=== PATIENT | female | born 1985 ===

== ENCOUNTER 2024-09-11 18:52 | Inpatient (IN) | payer MEDICAID, SELFPAY ==
[2024-09-11 19:19] VITALS: BP 134/86; PULSE 99; RESP 16; TEMP 36.6; O2SAT 95
--- NOTE | 2024-09-11 19:26 | PC.NURSE ---
Pt was brought on to the unit at 1915 via stretcher from [facility]. VSS, skin check completed , skin intact. Pt oriented to the unit.
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
[2024-09-12 07:25] VITALS: BP 130/84; PULSE 74; RESP 14; TEMP 36.8; O2SAT 98
[2024-09-12] MEDS: QUEtiapine Fumarate 100 MG TABLET PO ×3 (08:32→16:37)
[2024-09-12 08:33] VITALS: BP 130/84
[2024-09-12] MEDS: amLODIPine Besylate 10 MG TABLET PO (08:33)
[2024-09-12] MEDS: Sertraline HCL 100 MG TABLET PO (08:33)
[2024-09-12 08:57] LABS: Estimated Average Glucose 94 mg/dL; Hemoglobin A1c % 4.9 % (<6.0)
[2024-09-12 09:03] LABS: Cholesterol 206 mg/dL (<200); HDL Cholesterol 54 mg/dL (>40); LDL Cholesterol Calculated 119 mg/dL (<100); Triglycerides 168 mg/dL (<150)
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
[2024-09-12 09:43] LABS: Free T4 (Free Thyroxine) 0.69 ng/dL (0.71-1.85); Thyroid Stimulating Hormone 1.74 uIU/mL (0.32-4.0)
--- NOTE | 2024-09-12 09:50 | HO.PM.IMCN ---
History of Present Illness Data of Consult Service Date: 09/12/24 Primary Care Provider: None Physician HPI Reason for consult: Medical H&P 39-year-old female with a past medical history of PTSD, MDD, hypertension, anxiety, and EtOH, presented to [facility] with suicidal ideation. Patient was recently discharged from [facility], plans to discharge to [facility] which did not occur, instead she went to her parent's house and subsequently had a relapse. She also demonstrated self-injurious behavior. Her CBC, CMP, and hCG were all negative, she was medically cleared for admission to the psychiatric unit. Om exam she has no medical concerns. She does report what she describes as an alcohol withdrawal seizure about three weeks ago. She reports she was not eating, or drinking water which led to a seizure she had at home. She reports a medical admission for 5 days as a result in [place]. No records available. Her exam she is awake and alert, anxious. She denies any shortness of breath, dizziness, lightheadedness, headaches or any other concerning symptoms. Review of Systems Review of Systems: Denies any shortness of breath, chest pain, dizziness, lightheadedness, abdominal pain or discomfort, nausea vomiting or diarrhea [facility] Medical History (Updated 09/12/24 @ 10:00 by Martha Carreno DNP) PTSD (post-traumatic stress disorder) MDD (major depressive disorder) Hypertensive disorder Hemorrhoid Anxiety disorder Alcohol dependence with intoxication Social History Household Members: Family Household Members Other:: parents Housing: House Do you presently have visiting nurse or other home services: No Patient Tobacco Use Status: Refuse Tobacco use screen Currently Displaying Signs/Symptoms of Drug Intoxication Withdrawal: No Spiritual Healthcare Practices: pt declined to participate in assessment at this time Sikhism Healthcare Practices: pt declined to participate in assessment at this time Cultural Healthcare Practices: pt declined to participate in assessment at this time Advance Directives: No Advance Directives Information Provided: No Do you have thoughts of harming others: None Do you have a plan to hurt others: No Plan Recently lost weight without trying: Unsure Patient : No : No Poor oral hygiene: No Meds Allergies Allergy/AdvReac Type Severity Reaction Status Date / Time buspirone [From BuSpar] Allergy Unknown Verified 09/11/24 23:29 Active Medications: Current Medications Acetaminophen (Acetaminophen 325 Mg Tablet) 650 mg PO Q6H PRN PRN Reason: Headache/Pain, Scale 1-10 Al Hydroxide/Mg Hydroxide (Magnesium Hydrox/Alum Hydrox 30 Ml Oral.Susp) 30 ml PO Q6H PRN PRN Reason: Heartburn/Nausea Amlodipine Besylate (Amlodipine Besylate 10 Mg Tablet) 10 mg PO DAILY [facility]; Protocol Last Admin: 09/12/24 08:33 Dose: 10 mg Hydroxyzine HCl (Hydroxyzine Hcl 25 Mg Tablet) 25 mg PO Q6H PRN PRN Reason: mild anxiety Lidocaine (Lidocaine 4 % Patch Adh..Patch) 1 patch TRANSDERMA Q12H PRN PRN Reason: Pain, Mild (Pain Scale 1-3) Lorazepam (Lorazepam 1 Mg Tablet) 1 mg PO BEDTIME PRN PRN Reason: Anxiety Magnesium Hydroxide (Milk Of Magnesia 30 Ml Oral.Susp) 30 ml PO DAILY PRN PRN Reason: Constipation Nicotine Polacrilex (Nicotine Polacrilex 2 Mg Gum) 4 mg BUCCAL Q2H PRN PRN Reason: Nicotine Cravings Non-Formulary Medication (Methylphenidate Hcl [Concerta]) 36 mg PO DAILY [facility] Quetiapine Fumarate (Quetiapine Fumarate 100 Mg Tablet) 100 mg PO TID PRN PRN Reason: Anxiety Last Admin: 09/12/24 08:32 Dose: 100 mg Quetiapine Fumarate (Quetiapine Fumarate 200 Mg Tablet) 200 mg PO BEDTIME [facility] Last Admin: 09/11/24 23:22 Dose: Not Given Sertraline HCl (Sertraline Hcl 100 Mg Tablet) 100 mg PO DAILY [facility] Last Admin: 09/12/24 08:33 Dose: 100 mg Trazodone HCl (Trazodone Hcl 50 Mg Tablet) 50 mg PO BEDTIME MRX1 PRN PRN Reason: Insomnia Home Medications ?Medication ?Instructions ?Recorded ?Confirmed ?Last Taken ?Type amlodipine 5 mg tablet 10 mg PO DAILY 09/11/24 09/11/24 09/11/24 10:23 History lidocaine 5 % topical patch 1 patch topical Q12H PRN Pain 09/11/24 09/11/24 Unknown History lorazepam 1 mg tablet 1 mg PO BEDTIME PRN Anxiety 09/11/24 09/11/24 09/10/24 21:41 History methylphenidate HCl 36 mg 36 mg PO DAILY 09/11/24 09/11/24 09/11/24 10:22 History tablet,extended release 24 hr (Concerta) quetiapine 100 mg tablet 100 mg PO TID PRN Anxiety 09/11/24 09/11/24 09/11/24 10:23 History quetiapine 200 mg tablet 200 mg PO BEDTIME 09/11/24 09/11/24 09/10/24 21:41 History sertraline 100 mg tablet 100 mg PO DAILY 09/11/24 09/11/24 09/11/24 10:23 History Physical Exam Vital Signs and Narrative: Vital Signs: Last Vital Signs Temp 98.2 F 09/12/24 07:25 Pulse 74 09/12/24 07:25 Resp 14 09/12/24 07:25 BP 130/84 09/12/24 08:33 Pulse Ox 98 09/12/24 07:25 O2 Del Method Room Air 09/12/24 07:25 Alert and oriented X3, able to give good history. Anxious Neuro: CN II-X11 intact, no deficits, visual acuity intact EYES: PERRLA, EOM intact ENT: Hearing intact, lips moist Cardiac: S1 S2 RRR, No ectopy Pulmonary: lungs clear to auscultation, No increased WOB. Abdominal: BS active in all 4 quadrants, no guarding or tenderness MSK: Strength 5/5 upper and lower extremities : Deferred Extremities: No edema in lower extremities Psych: mood stable, Quiet and cooperative. Skin: Warm and dry, Intact Results Labs Labs: Laboratory Results - last 24 hr 09/12/24 07:59 Estimat Average Glucose 94 Hemoglobin A1c % 4.9 Triglycerides 168 H Cholesterol 206 H LDL Cholesterol, Calc 119 H HDL Cholesterol 54 TSH 1.74 Free T4 0.69 L Assessment and Plan (1) Hypertensive disorder: Status: Acute Plan MDD/PTSD/anxiety/EtOH abuse/suicidal ideation/self-injurious behavior Plan per psychiatric team No evidence of withdrawal at this time Hypertension Continue amlodipine Continue to follow up blood pressures and notify medicine with any concerns Thank you for allowing me to participate in the care of this patient. Signing off at this time. Please reconsult of any acute concerns or issues arise
[2024-09-12 09:56] LABS: Folate 11.2 ng/mL (> or = 4.0); Vitamin B12 295 pg/mL (200-900)
[2024-09-12] MEDS: Dextroamphetamine/Amphetamine XR 5 MG CAP.ER.24H PO (12:34)
[2024-09-12 20:00] VITALS: BP 121/71; PULSE 90; RESP 16; TEMP 36.6; O2SAT 98
[2024-09-12] MEDS: traZODone HCL 50 MG TABLET PO (20:24)
[2024-09-12] MEDS: LORazepam 1 MG TABLET PO (20:24)
[2024-09-12] MEDS: QUEtiapine Fumarate 200 MG TABLET PO (20:24)
[2024-09-13 07:51] VITALS: BP 116/77; PULSE 77; RESP 16; TEMP 36.3; O2SAT 96
[2024-09-13] MEDS: amLODIPine Besylate 10 MG TABLET PO (08:39)
[2024-09-13] MEDS: QUEtiapine Fumarate 100 MG TABLET PO ×2 (08:41→17:19)
[2024-09-13] MEDS: Sertraline HCL 100 MG TABLET PO (08:42)
[2024-09-13] MEDS: Dextroamphetamine/Amphetamine XR 10 MG CAP.ER.24H PO (08:42)
[2024-09-13] MEDS: Naltrexone HCl 50 MG TABLET PO (11:30)
--- NOTE | 2024-09-13 15:32 | HO.PSYCHPN ---
Subjective Subjective Date of Service: 09/13/24 Reason For Visit: PTSD, alcohol use disorder severe Interim History: less voluble and more settled than yesterday. still has a bed at [facility] for 09/19. R/B of naltrexone and antabuse discussed with pt. pt opts for trial of naltrexone. per staff, taking meds. +anx/dep. slept 8 hours. Mental Status Exam Mental Status Exam Narrative: disheveled, mono. cooperative. restless. speech incr rate, amount. decr latency. nml loudness. thoughts more linear and topical. affect constricted, normo-intense, non-labile. mood not assessed. no SI/SIBI/HI/AVH expressed. Diagnostics Vital Signs (24Hr): Vital Signs - 24 hr 09/12/24 20:00 09/13/24 07:51 Temperature 97.8 F 97.3 F Pulse Rate 90 77 Respiratory Rate 16 16 Blood Pressure 121/71 116/77 Pulse Oximetry 98 96 Oxygen Delivery Method Room Air Room Air Labs Labs: Laboratory Results - last 48 hr 09/12/24 07:59 Estimat Average Glucose 94 Hemoglobin A1c % 4.9 Triglycerides 168 H Cholesterol 206 H LDL Cholesterol, Calc 119 H HDL Cholesterol 54 Vitamin B12 295 Folate 11.2 TSH 1.74 Free T4 0.69 L Medications Medications Current Medications Acetaminophen (Acetaminophen 325 Mg Tablet) 650 mg PO Q6H PRN PRN Reason: Headache/Pain, Scale 1-10 Al Hydroxide/Mg Hydroxide (Magnesium Hydrox/Alum Hydrox 30 Ml Oral.Susp) 30 ml PO Q6H PRN PRN Reason: Heartburn/Nausea Amlodipine Besylate (Amlodipine Besylate 10 Mg Tablet) 10 mg PO DAILY [facility]; Protocol Last Admin: 09/13/24 08:39 Dose: 10 mg Amphetamine/Dextroamphetamine (Dextroamphetamine/Amphetamine Xr 10 Mg Cap.Er.24h) 10 mg PO DAILY [facility] Last Admin: 09/13/24 08:42 Dose: 10 mg Hydroxyzine HCl (Hydroxyzine Hcl 25 Mg Tablet) 25 mg PO Q6H PRN PRN Reason: mild anxiety Lidocaine (Lidocaine 4 % Patch Adh..Patch) 1 patch TRANSDERMA Q12H PRN PRN Reason: Pain, Mild (Pain Scale 1-3) Lorazepam (Lorazepam 1 Mg Tablet) 1 mg PO BEDTIME PRN PRN Reason: Anxiety Last Admin: 09/12/24 20:24 Dose: 1 mg Magnesium Hydroxide (Milk Of Magnesia 30 Ml Oral.Susp) 30 ml PO DAILY PRN PRN Reason: Constipation Naltrexone HCl (Naltrexone Hcl 50 Mg Tablet) 50 mg PO DAILY [facility] Last Admin: 09/13/24 11:30 Dose: 50 mg Nicotine Polacrilex (Nicotine Polacrilex 2 Mg Gum) 4 mg BUCCAL Q2H PRN PRN Reason: Nicotine Cravings Quetiapine Fumarate (Quetiapine Fumarate 100 Mg Tablet) 100 mg PO TID PRN PRN Reason: Anxiety Last Admin: 09/13/24 08:41 Dose: 100 mg Quetiapine Fumarate (Quetiapine Fumarate 200 Mg Tablet) 200 mg PO BEDTIME [facility] Last Admin: 09/12/24 20:24 Dose: 200 mg Sertraline HCl (Sertraline Hcl 100 Mg Tablet) 100 mg PO DAILY [facility]CLUD[facility] Last Admin: 09/13/24 08:42 Dose: 100 mg Trazodone HCl (Trazodone Hcl 50 Mg Tablet) 50 mg PO BEDTIME MRX1 PRN PRN Reason: Insomnia Last Admin: 09/12/24 20:24 Dose: 50 mg Allergies Allergies Allergy/AdvReac Type Severity Reaction Status Date / Time buspirone (From BuSpar) Allergy Unknown Verified 09/11/24 23:29 Assessment & Plan Assessment & Plan (1) ADHD: Status: Acute Code(s): F90.9 - Attention-deficit hyperactivity disorder, unspecified type (2) Alcohol use disorder: Status: Acute Code(s): F10.90 - Alcohol use, unspecified, uncomplicated (3) PTSD (post-traumatic stress disorder): Status: Acute Code(s): F43.10 - Post-traumatic stress disorder, unspecified Plan 09/12: no need for CIWA/ativan protocol as pt was detoxed and only relapsed for several days after 3 weeks without alcohol. continue home medications. replace methylphenidate with adderall. stabilize inpatient, refer for residential Tx programming (pt may have a bed at [facility] as of 09/19). 09/13: [facility] has bed for her 09/19. will discharge to [facility] [place] 09/18 via lyft. start trial of naltrexone. Reason for continued inpatient stay Substantial Risk for: inability to function Time Spent With Patient Time: Total time managing care of this patient today __35__ minutes.
[2024-09-13 20:00] VITALS: BP 117/64; PULSE 71; RESP 16; TEMP 36.5; O2SAT 95
[2024-09-13] MEDS: LORazepam 1 MG TABLET PO (20:51)
[2024-09-13] MEDS: traZODone HCL 50 MG TABLET PO (20:51)
[2024-09-13] MEDS: QUEtiapine Fumarate 200 MG TABLET PO (20:52)
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
[2024-09-14 07:20] VITALS: BP 137/75; PULSE 74; RESP 16; TEMP 35.9; O2SAT 94
[2024-09-14 08:11] VITALS: BP 137/75
[2024-09-14] MEDS: Sertraline HCL 100 MG TABLET PO (08:11)
[2024-09-14] MEDS: amLODIPine Besylate 10 MG TABLET PO (08:11)
[2024-09-14] MEDS: Naltrexone HCl 50 MG TABLET PO (08:12)
[2024-09-14] MEDS: Dextroamphetamine/Amphetamine XR 10 MG CAP.ER.24H PO (08:12)
[2024-09-14] MEDS: QUEtiapine Fumarate 100 MG TABLET PO ×3 (08:18→17:28)
--- NOTE | 2024-09-14 09:56 | HO.PSYCHPN ---
Subjective Subjective Date of Service: 09/14/24 Reason For Visit: PTSD, alcohol use disorder severe Subjective Notes: Conditional Voluntary Interim History: Active on unit. attending groups. Pt reports feeling anxious and depressed; pt stated, I'm trying to push myself not to sleep all day and try to go to groups . denies SI/HI/VH/AH. medication compliant. continue current tx plan. Medication Compliance: Yes Side effects from medications: No Attending Groups: Yes Mental Status Exam Mental Status Exam Patient Appearance: Appropriate Patient Orientation: Person, Place, Time and Situation Level of Consciousness: Awake and Alert Patient Behavior: Appropriate, Guarded and Cooperative Mood Description: Depressed and Anxious Affect Description: Calm Ability to Follow Directions: Good Speech Pattern: Clear Memory Description: Intact Hallucinations: None Delusions: Not Present Thought Process: Intact Thought Content: positive for Intact Diagnostics Vital Signs (24Hr): Vital Signs - 24 hr 09/13/24 20:00 09/14/24 07:20 09/14/24 08:11 Temperature 97.7 F 96.7 F L Pulse Rate 71 74 Respiratory Rate 16 16 Blood Pressure 117/64 137/75 137/75 Pulse Oximetry 95 94 Oxygen Delivery Method Room Air Room Air Labs Labs: Laboratory Results - last 48 hr 09/12/24 07:59 Vitamin B12 295 Folate 11.2 Medications Medications Current Medications Acetaminophen (Acetaminophen 325 Mg Tablet) 650 mg PO Q6H PRN PRN Reason: Headache/Pain, Scale 1-10 Al Hydroxide/Mg Hydroxide (Magnesium Hydrox/Alum Hydrox 30 Ml Oral.Susp) 30 ml PO Q6H PRN PRN Reason: Heartburn/Nausea Amlodipine Besylate (Amlodipine Besylate 10 Mg Tablet) 10 mg PO DAILY [facility]; Protocol Last Admin: 09/14/24 08:11 Dose: 10 mg Amphetamine/Dextroamphetamine (Dextroamphetamine/Amphetamine Xr 10 Mg Cap.Er.24h) 10 mg PO DAILY [facility] Last Admin: 09/14/24 08:12 Dose: 10 mg Hydroxyzine HCl (Hydroxyzine Hcl 25 Mg Tablet) 25 mg PO Q6H PRN PRN Reason: mild anxiety Lidocaine (Lidocaine 4 % Patch Adh..Patch) 1 patch TRANSDERMA Q12H PRN PRN Reason: Pain, Mild (Pain Scale 1-3) Lorazepam (Lorazepam 1 Mg Tablet) 1 mg PO BEDTIME PRN PRN Reason: Anxiety Last Admin: 09/13/24 20:51 Dose: 1 mg Magnesium Hydroxide (Milk Of Magnesia 30 Ml Oral.Susp) 30 ml PO DAILY PRN PRN Reason: Constipation Naltrexone HCl (Naltrexone Hcl 50 Mg Tablet) 50 mg PO DAILY [facility] Last Admin: 09/14/24 08:12 Dose: 50 mg Nicotine Polacrilex (Nicotine Polacrilex 2 Mg Gum) 4 mg BUCCAL Q2H PRN PRN Reason: Nicotine Cravings Quetiapine Fumarate (Quetiapine Fumarate 100 Mg Tablet) 100 mg PO TID PRN PRN Reason: Anxiety Last Admin: 09/14/24 08:18 Dose: 100 mg Quetiapine Fumarate (Quetiapine Fumarate 200 Mg Tablet) 200 mg PO BEDTIME [facility] Last Admin: 09/13/24 20:52 Dose: 200 mg Sertraline HCl (Sertraline Hcl 100 Mg Tablet) 100 mg PO DAILY [facility] Last Admin: 09/14/24 08:11 Dose: 100 mg Trazodone HCl (Trazodone Hcl 50 Mg Tablet) 50 mg PO BEDTIME MRX1 PRN PRN Reason: Insomnia Last Admin: 09/13/24 20:51 Dose: 50 mg Allergies Allergies Allergy/AdvReac Type Severity Reaction Status Date / Time buspirone (From BuSpar) Allergy Unknown Verified 09/11/24 23:29 Assessment & Plan Assessment & Plan (1) ADHD: Status: Acute Code(s): F90.9 - Attention-deficit hyperactivity disorder, unspecified type (2) Alcohol use disorder: Status: Acute Code(s): F10.90 - Alcohol use, unspecified, uncomplicated (3) PTSD (post-traumatic stress disorder): Status: Acute Code(s): F43.10 - Post-traumatic stress disorder, unspecified Plan 09/12: no need for CIWA/ativan protocol as pt was detoxed and only relapsed for several days after 3 weeks without alcohol. continue home medications. replace methylphenidate with adderall. stabilize inpatient, refer for residential Tx programming (pt may have a bed at [facility] as of 09/19). 09/13: [facility] has bed for her 09/19. will discharge to [facility] in [place] 09/18 via lyft. start trial of naltrexone. 09/14: anxious and depressed. trying to attending groups. continue current tx plan. Patient educated on: diagnosis and medication risk/benefits Reason for continued inpatient stay Substantial Risk for: med/psych decompensation Time Spent With Patient Time: Total time managing care of this patient today _15___ minutes.
[2024-09-14] MEDS: Nicotine Polacrilex 2 MG GUM 4 MG BUCCAL ×3 (10:29→17:30)
[2024-09-14 21:57] VITALS: BP 112/81; PULSE 78; RESP 16; TEMP 36.4; O2SAT 100
[2024-09-14] MEDS: Lidocaine 4 % Patch ADH..PATCH 1 PATCH TRANSDERMA (22:20)
[2024-09-14] MEDS: Acetaminophen 325 MG TABLET 650 MG PO (22:20)
[2024-09-14] MEDS: QUEtiapine Fumarate 200 MG TABLET PO (22:21)
[2024-09-14] MEDS: traZODone HCL 50 MG TABLET PO (22:21)
[2024-09-14] MEDS: LORazepam 1 MG TABLET PO (22:21)
[2024-09-15 08:00] VITALS: BP 111/66; PULSE 68; RESP 14; TEMP 36.9; O2SAT 95
[2024-09-15] MEDS: Dextroamphetamine/Amphetamine XR 10 MG CAP.ER.24H PO (08:26)
[2024-09-15] MEDS: Sertraline HCL 100 MG TABLET PO (08:27)
[2024-09-15] MEDS: Naltrexone HCl 50 MG TABLET PO (08:27)
[2024-09-15 08:28] VITALS: BP 111/66
[2024-09-15] MEDS: amLODIPine Besylate 10 MG TABLET PO (08:28)
[2024-09-15] MEDS: QUEtiapine Fumarate 100 MG TABLET PO ×3 (08:29→18:46)
[2024-09-15] MEDS: Acetaminophen 325 MG TABLET 650 MG PO (08:30)
--- NOTE | 2024-09-15 10:11 | HO.PSYCHPN ---
Subjective Subjective Date of Service: 09/15/24 Reason For Visit: PTSD, alcohol use disorder severe Interim History: Laying in bed. Pt reports feeling okay but tired today; pt stated, I'm waiting to leave here on Wednesday and go to [facility] . denies SI/HI/VH/AH. continue current tx plan. Medication Compliance: Yes Side effects from medications: No Attending Groups: Intermittent Mental Status Exam Mental Status Exam Patient Appearance: Appropriate Patient Orientation: Person, Place, Time and Situation Level of Consciousness: Awake and Alert Patient Behavior: Appropriate, Guarded and Cooperative Mood Description: Depressed Affect Description: Calm Ability to Follow Directions: Good Speech Pattern: Clear Memory Description: Intact Hallucinations: None Delusions: Not Present Thought Process: Intact Thought Content: positive for Intact Diagnostics Vital Signs (24Hr): Vital Signs - 24 hr 09/14/24 21:57 09/15/24 08:00 09/15/24 08:28 Temperature 97.6 F 98.4 F Pulse Rate 78 68 Respiratory Rate 16 14 Blood Pressure 112/81 111/66 111/66 Pulse Oximetry 100 95 Oxygen Delivery Method Room Air Room Air Medications Medications Current Medications Acetaminophen (Acetaminophen 325 Mg Tablet) 650 mg PO Q6H PRN PRN Reason: Headache/Pain, Scale 1-10 Last Admin: 09/15/24 08:30 Dose: 650 mg Al Hydroxide/Mg Hydroxide (Magnesium Hydrox/Alum Hydrox 30 Ml Oral.Susp) 30 ml PO Q6H PRN PRN Reason: Heartburn/Nausea Amlodipine Besylate (Amlodipine Besylate 10 Mg Tablet) 10 mg PO DAILY [facility]; Protocol Last Admin: 09/15/24 08:28 Dose: 10 mg Amphetamine/Dextroamphetamine (Dextroamphetamine/Amphetamine Xr 10 Mg Cap.Er.24h) 10 mg PO DAILY [facility] Last Admin: 09/15/24 08:26 Dose: 10 mg Hydroxyzine HCl (Hydroxyzine Hcl 25 Mg Tablet) 25 mg PO Q6H PRN PRN Reason: mild anxiety Lidocaine (Lidocaine 4 % Patch Adh..Patch) 1 patch TRANSDERMA Q12H PRN PRN Reason: Pain, Mild (Pain Scale 1-3) Last Admin: 09/14/24 22:20 Dose: 1 patch Lorazepam (Lorazepam 1 Mg Tablet) 1 mg PO BEDTIME PRN PRN Reason: Anxiety Last Admin: 06/19/25 22:21 Dose: 1 mg Magnesium Hydroxide (Milk Of Magnesia 30 Ml Oral.Susp) 30 ml PO DAILY PRN PRN Reason: Constipation Naltrexone HCl (Naltrexone Hcl 50 Mg Tablet) 50 mg PO DAILY [facility] Last Admin: 09/15/24 08:27 Dose: 50 mg Nicotine Polacrilex (Nicotine Polacrilex 2 Mg Gum) 4 mg BUCCAL Q2H PRN PRN Reason: Nicotine Cravings Last Admin: 09/14/24 17:30 Dose: 4 mg Quetiapine Fumarate (Quetiapine Fumarate 100 Mg Tablet) 100 mg PO TID PRN PRN Reason: Anxiety Last Admin: 09/15/24 08:29 Dose: 100 mg Quetiapine Fumarate (Quetiapine Fumarate 200 Mg Tablet) 200 mg PO BEDTIME [facility] Last Admin: 09/14/24 22:21 Dose: 200 mg Sertraline HCl (Sertraline Hcl 100 Mg Tablet) 100 mg PO DAILY [facility] Last Admin: 09/15/24 08:27 Dose: 100 mg Trazodone HCl (Trazodone Hcl 50 Mg Tablet) 50 mg PO BEDTIME MRX1 PRN PRN Reason: Insomnia Last Admin: 09/14/24 22:21 Dose: 50 mg Allergies Allergies Allergy/AdvReac Type Severity Reaction Status Date / Time buspirone (From BuSpar) Allergy Unknown Verified 09/11/24 23:29 Assessment & Plan Assessment & Plan (1) ADHD: Status: Acute Code(s): F90.9 - Attention-deficit hyperactivity disorder, unspecified type (2) Alcohol use disorder: Status: Acute Code(s): F10.90 - Alcohol use, unspecified, uncomplicated (3) PTSD (post-traumatic stress disorder): Status: Acute Code(s): F43.10 - Post-traumatic stress disorder, unspecified Plan 09/12: no need for CIWA/ativan protocol as pt was detoxed and only relapsed for several days after 3 weeks without alcohol. continue home medications. replace methylphenidate with adderall. stabilize inpatient, refer for residential Tx programming (pt may have a bed at [facility] as of 09/19). 09/13: [facility] has bed for her 09/19. will discharge to [facility] in [place] 09/18 via lyft. start trial of naltrexone. 09/14: anxious and depressed. trying to attending groups. continue current tx plan. 09/15: focused on discharged Wednesday. laying in bed. continue tx plan. Patient educated on: diagnosis, medication risk/benefits and therapeutic strategies Reason for continued inpatient stay Substantial Risk for: med/psych decompensation Time Spent With Patient Time: Total time managing care of this patient today _15___ minutes.
[2024-09-15] MEDS: Nicotine Polacrilex 2 MG GUM 4 MG BUCCAL ×3 (12:39→18:46)
[2024-09-15 20:05] VITALS: BP 111/71; PULSE 81; RESP 16; TEMP 36.7; O2SAT 99
[2024-09-15] MEDS: QUEtiapine Fumarate 200 MG TABLET PO (21:39)
[2024-09-15] MEDS: traZODone HCL 50 MG TABLET PO (22:58)
[2024-09-15] MEDS: LORazepam 1 MG TABLET PO (22:58)
[2024-09-16 07:51] VITALS: BP 114/68; PULSE 69; RESP 16; TEMP 36.5; O2SAT 95
[2024-09-16] MEDS: Naltrexone HCl 50 MG TABLET PO (08:50)
[2024-09-16] MEDS: Sertraline HCL 100 MG TABLET PO (08:50)
[2024-09-16] MEDS: Dextroamphetamine/Amphetamine XR 10 MG CAP.ER.24H PO (08:50)
[2024-09-16] MEDS: amLODIPine Besylate 10 MG TABLET PO (08:50)
[2024-09-16] MEDS: QUEtiapine Fumarate 100 MG TABLET PO ×3 (08:51→19:36)
--- NOTE | 2024-09-16 09:16 | HO.PSYCHPN ---
Subjective Subjective Date of Service: 09/16/24 Reason For Visit: PTSD, alcohol use disorder severe Subjective Notes: Conditional Voluntary Interim History: Patient was seen and discussed in rounds today. Records and plans were reviewed. She is visible, pleasant and cooperative. Somewhat guarded. She is doing better and has been brighter. No complaints or side effects. Sleeping adequately and eating 50% of meals. Compliant with medication with no side effects. No SI. No changes were Review of Systems Review of Systems Denies any shortness of breath, chest pain, dizziness, lightheadedness, abdominal pain or discomfort, nausea vomiting or diarrhea Mental Status Exam Mental Status Exam Patient Appearance: Appropriate Patient Orientation: Person, Place, Time and Situation Level of Consciousness: Awake and Alert Patient Behavior: Appropriate, Guarded and Cooperative Mood Description: Depressed Affect Description: Calm Ability to Follow Directions: Good Speech Pattern: Clear Memory Description: Intact Hallucinations: None Delusions: Not Present Thought Process: Intact Thought Content: positive for Intact Diagnostics Vital Signs (24Hr): Vital Signs - 24 hr 09/15/24 20:05 09/16/24 07:51 Temperature 98.0 F 97.7 F Pulse Rate 81 69 Respiratory Rate 16 16 Blood Pressure 111/71 114/68 Pulse Oximetry 99 95 Oxygen Delivery Method Room Air Room Air Medications Medications Current Medications Acetaminophen (Acetaminophen 325 Mg Tablet) 650 mg PO Q6H PRN PRN Reason: Headache/Pain, Scale 1-10 Last Admin: 09/15/24 08:30 Dose: 650 mg Al Hydroxide/Mg Hydroxide (Magnesium Hydrox/Alum Hydrox 30 Ml Oral.Susp) 30 ml PO Q6H PRN PRN Reason: Heartburn/Nausea Amlodipine Besylate (Amlodipine Besylate 10 Mg Tablet) 10 mg PO DAILY [facility]; Protocol Last Admin: 09/16/24 08:50 Dose: 10 mg Amphetamine/Dextroamphetamine (Dextroamphetamine/Amphetamine Xr 10 Mg Cap.Er.24h) 10 mg PO DAILY [facility] Last Admin: 09/16/24 08:50 Dose: 10 mg Hydroxyzine HCl (Hydroxyzine Hcl 25 Mg Tablet) 25 mg PO Q6H PRN PRN Reason: mild anxiety Lidocaine (Lidocaine 4 % Patch Adh..Patch) 1 patch TRANSDERMA Q12H PRN PRN Reason: Pain, Mild (Pain Scale 1-3) Last Admin: 09/14/24 22:20 Dose: 1 patch Lorazepam (Lorazepam 1 Mg Tablet) 1 mg PO BEDTIME PRN PRN Reason: Anxiety Last Admin: 09/15/24 22:58 Dose: 1 mg Magnesium Hydroxide (Milk Of Magnesia 30 Ml Oral.Susp) 30 ml PO DAILY PRN PRN Reason: Constipation Naltrexone HCl (Naltrexone Hcl 50 Mg Tablet) 50 mg PO DAILY [facility] Last Admin: 09/16/24 08:50 Dose: 50 mg Nicotine Polacrilex (Nicotine Polacrilex 2 Mg Gum) 4 mg BUCCAL Q2H PRN PRN Reason: Nicotine Cravings Last Admin: 09/15/24 18:46 Dose: 4 mg Quetiapine Fumarate (Quetiapine Fumarate 100 Mg Tablet) 100 mg PO TID PRN PRN Reason: Anxiety Last Admin: 09/16/24 08:51 Dose: 100 mg Quetiapine Fumarate (Quetiapine Fumarate 200 Mg Tablet) 200 mg PO BEDTIME [facility] Last Admin: 09/15/24 21:39 Dose: 200 mg Sertraline HCl (Sertraline Hcl 100 Mg Tablet) 100 mg PO DAILY [facility] Last Admin: 09/16/24 08:50 Dose: 100 mg Trazodone HCl (Trazodone Hcl 50 Mg Tablet) 50 mg PO BEDTIME MRX1 PRN PRN Reason: Insomnia Last Admin: 09/15/24 22:58 Dose: 50 mg Allergies Allergies Allergy/AdvReac Type Severity Reaction Status Date / Time buspirone (From BuSpar) Allergy Unknown Verified 09/11/24 23:29 Assessment & Plan Assessment & Plan (1) ADHD: Status: Acute Code(s): F90.9 - Attention-deficit hyperactivity disorder, unspecified type (2) Alcohol use disorder: Status: Acute Code(s): F10.90 - Alcohol use, unspecified, uncomplicated (3) PTSD (post-traumatic stress disorder): Status: Acute Code(s): F43.10 - Post-traumatic stress disorder, unspecified Plan 09/12: no need for CIWA/ativan protocol as pt was detoxed and only relapsed for several days after 3 weeks without alcohol. continue home medications. replace methylphenidate with adderall. stabilize inpatient, refer for residential Tx programming (pt may have a bed at [facility] as of 09/19). 09/13: [facility] has bed for her 09/19. will discharge to [facility] in [place] 09/18 via lyft. start trial of naltrexone. 09/14: anxious and depressed. trying to attending groups. continue current tx plan. 09/15: focused on discharged Wednesday. laying in bed. continue tx plan. 09/16: Continue current regimen and plans Reason for continued inpatient stay Substantial Risk for: med/psych decompensation Time Spent With Patient Time: Total time managing care of this patient today ____ minutes.
[2024-09-16] MEDS: Nicotine Polacrilex 2 MG GUM 4 MG BUCCAL ×4 (12:22→22:03)
[2024-09-16 19:17] VITALS: BP 122/76; PULSE 87; RESP 16; TEMP 36.8; O2SAT 100
[2024-09-16] MEDS: LORazepam 1 MG TABLET PO (22:01)
[2024-09-16] MEDS: QUEtiapine Fumarate 200 MG TABLET PO (22:01)
[2024-09-16] MEDS: traZODone HCL 50 MG TABLET PO (23:05)
[2024-09-17 08:00] VITALS: BP 112/71; PULSE 75; RESP 19; TEMP 36.4; O2SAT 98
[2024-09-17 08:40] VITALS: BP 112/71
[2024-09-17] MEDS: Naltrexone HCl 50 MG TABLET PO (08:40)
[2024-09-17] MEDS: amLODIPine Besylate 10 MG TABLET PO (08:40)
[2024-09-17] MEDS: Sertraline HCL 100 MG TABLET PO (08:40)
[2024-09-17] MEDS: Dextroamphetamine/Amphetamine XR 10 MG CAP.ER.24H PO ×2 (08:40→12:26)
[2024-09-17] MEDS: QUEtiapine Fumarate 100 MG TABLET PO ×3 (08:43→21:31)
[2024-09-17] MEDS: Nicotine Polacrilex 2 MG GUM 4 MG BUCCAL ×5 (09:07→19:50)
--- NOTE | 2024-09-17 09:47 | P.PNPSI_ITS ---
Subjective Subjective Date of Service: 09/17/24 Reason For Visit: PTSD, alcohol use disorder severe Subjective Notes: Conditional Voluntary Interim History: Patient was seen and discussed in rounds today. Records and plans were reviewed. She has been stable and is doing okay. Continues to endorse anxiety. She states that the Adderall is not covering her enough since she was on 36 mg of Concerta. I increased it to 10 mg b.i.d.. Eating and sleeping adequately. No SI. No other changes were made today Review of Systems Review of Systems Yes all other systems are reviewed and are negative Mental Status Exam Mental Status Exam Patient Appearance: Appropriate Patient Orientation: Person, Place, Time and Situation Level of Consciousness: Awake and Alert Patient Behavior: Appropriate, Guarded and Cooperative Mood Description: Depressed Affect Description: Calm Ability to Follow Directions: Good Speech Pattern: Clear Memory Description: Intact Hallucinations: None Delusions: Not Present Thought Process: Intact Thought Content: positive for Intact Diagnostics Vital Signs (24Hr): Vital Signs - 24 hr 09/16/24 19:17 09/17/24 08:00 09/17/24 08:40 Temperature 98.2 F 97.6 F Pulse Rate 87 75 Respiratory Rate 16 19 Blood Pressure 122/76 112/71 112/71 Pulse Oximetry 100 98 Oxygen Delivery Method Room Air Room Air Medications Medications Current Medications Acetaminophen (Acetaminophen 325 Mg Tablet) 650 mg PO Q6H PRN PRN Reason: Headache/Pain, Scale 1-10 Last Admin: 09/15/24 08:30 Dose: 650 mg Al Hydroxide/Mg Hydroxide (Magnesium Hydrox/Alum Hydrox 30 Ml Oral.Susp) 30 ml PO Q6H PRN PRN Reason: Heartburn/Nausea Amlodipine Besylate (Amlodipine Besylate 10 Mg Tablet) 10 mg PO DAILY [facility]; Protocol Last Admin: 09/17/24 08:40 Dose: 10 mg Amphetamine/Dextroamphetamine (Dextroamphetamine/Amphetamine Xr 10 Mg Cap.Er.24h) 10 mg PO DAILY [facility] Last Admin: 09/17/24 08:40 Dose: 10 mg Hydroxyzine HCl (Hydroxyzine Hcl 25 Mg Tablet) 25 mg PO Q6H PRN PRN Reason: mild anxiety Lidocaine (Lidocaine 4 % Patch Adh..Patch) 1 patch TRANSDERMA Q12H PRN PRN Reason: Pain, Mild (Pain Scale 1-3) Last Admin: 09/14/24 22:20 Dose: 1 patch Lorazepam (Lorazepam 1 Mg Tablet) 1 mg PO BEDTIME PRN PRN Reason: Anxiety Last Admin: 09/16/24 22:01 Dose: 1 mg Magnesium Hydroxide (Milk Of Magnesia 30 Ml Oral.Susp) 30 ml PO DAILY PRN PRN Reason: Constipation Naltrexone HCl (Naltrexone Hcl 50 Mg Tablet) 50 mg PO DAILY [facility] Last Admin: 09/17/24 08:40 Dose: 50 mg Nicotine Polacrilex (Nicotine Polacrilex 2 Mg Gum) 4 mg BUCCAL Q2H PRN PRN Reason: Nicotine Cravings Last Admin: 09/17/24 09:07 Dose: 4 mg Quetiapine Fumarate (Quetiapine Fumarate 100 Mg Tablet) 100 mg PO TID PRN PRN Reason: Anxiety Last Admin: 09/17/24 08:43 Dose: 100 mg Quetiapine Fumarate (Quetiapine Fumarate 200 Mg Tablet) 200 mg PO BEDTIME [facility] Last Admin: 09/16/24 22:01 Dose: 200 mg Sertraline HCl (Sertraline Hcl 100 Mg Tablet) 100 mg PO DAILY [facility] Last Admin: 09/17/24 08:40 Dose: 100 mg Trazodone HCl (Trazodone Hcl 50 Mg Tablet) 50 mg PO BEDTIME MRX1 PRN PRN Reason: Insomnia Last Admin: 09/16/24 23:05 Dose: 50 mg Allergies Allergies Allergy/AdvReac Type Severity Reaction Status Date / Time buspirone (From BuSpar) Allergy Unknown Verified 09/11/24 23:29 Assessment & Plan Assessment & Plan (1) ADHD: Status: Acute Code(s): F90.9 - Attention-deficit hyperactivity disorder, unspecified type (2) Alcohol use disorder: Status: Acute Code(s): F10.90 - Alcohol use, unspecified, uncomplicated (3) PTSD (post-traumatic stress disorder): Status: Acute Code(s): F43.10 - Post-traumatic stress disorder, unspecified Plan 09/12: no need for CIWA/ativan protocol as pt was detoxed and only relapsed for several days after 3 weeks without alcohol. continue home medications. replace methylphenidate with adderall. stabilize inpatient, refer for residential Tx programming (pt may have a bed at [facility] as of 09/19). 09/13: [facility] has bed for her 09/19. [place] apt [place] 09[place] via lyft. start trial of naltrexone. 09/14: anxious and depressed. trying to attending groups. continue current tx plan. 09/15: focused on discharged Wednesday. laying in bed. continue tx plan. 09/16: Continue current regimen and plans 09/17: Continue current regimen and plans. Increase Adderall to 10 mg b.i.d. Guardian/Caregiver educated on: medication risk/benefits Reason for continued inpatient stay Substantial Risk for: med/psych decompensation Time Spent With Patient Time: Total time managing care of this patient today ____ minutes.
[2024-09-17] MEDS: QUEtiapine Fumarate 200 MG TABLET PO (19:47)
--- NOTE | 2024-09-17 19:47 | PC.NURSE ---
REQUESTING hs SEROQUEL AT THIS TIME-GIVEN
[2024-09-17 20:00] VITALS: BP 124/83; PULSE 103; RESP 16; TEMP 36.9; O2SAT 96
[2024-09-17] MEDS: Lidocaine 4 % Patch ADH..PATCH 1 PATCH TRANSDERMA (21:29)
[2024-09-17] MEDS: traZODone HCL 50 MG TABLET PO (21:31)
[2024-09-17] MEDS: LORazepam 1 MG TABLET PO (21:31)
[2024-09-18 07:51] VITALS: BP 123/85; PULSE 76; RESP 16; TEMP 36.6; O2SAT 97
[2024-09-18] MEDS: Naltrexone HCl 50 MG TABLET PO (08:25)
[2024-09-18] MEDS: Dextroamphetamine/Amphetamine XR 10 MG CAP.ER.24H PO ×2 (08:25→13:11)
[2024-09-18] MEDS: amLODIPine Besylate 10 MG TABLET PO (08:25)
[2024-09-18] MEDS: Sertraline HCL 100 MG TABLET PO (08:25)
[2024-09-18] MEDS: Nicotine Polacrilex 2 MG GUM 4 MG BUCCAL ×2 (09:52→13:11)
[2024-09-18] MEDS: QUEtiapine Fumarate 100 MG TABLET PO ×2 (09:52→13:11)
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
== END 2024-09-18 13:35 | disposition home or self-care (01) | DRG 755 ==
PROVIDERS: Admitting Provider Psychiatry & Neurology Psychiatry; Visit Provider Psychiatry & Neurology Psychiatry
DX: F43.10 Post-traumatic stress disorder, unspecified (principal); R45.851 Suicidal ideations; F10.90 Alcohol use, unspecified, uncomplicated; F90.9 Attention-deficit hyperactivity disorder, unspecified type; Z79.899 Other long term (current) drug therapy
CPT/HCPCS: 36415; 80061; 82607; 82746; 83036; 84439; 84443

== ENCOUNTER → 2024-09-11 18:52 | Outpatient (BNV) | payer MEDICAID, SELFPAY | PROVIDERS: Admitting Provider Psychiatry & Neurology Psychiatry; Visit Provider Nurse Practitioner Family | DX: I10 Essential (primary) hypertension (principal) | CPT/HCPCS: 99221 ==

== ENCOUNTER → 2024-09-11 18:52 | Outpatient (BNV) | payer MEDICAID, SELFPAY | PROVIDERS: Admitting Provider Psychiatry & Neurology Psychiatry; Visit Provider Psychiatry & Neurology Psychiatry | DX: F10.90 Alcohol use, unspecified, uncomplicated (principal); F90.9 Attention-deficit hyperactivity disorder, unspecified type; F43.11 Post-traumatic stress disorder, acute | CPT/HCPCS: 90792; 99231; 99232; 99239 ==